=== PATIENT | female | born 1970 | race Caucasian/White ===

== ENCOUNTER 2018-08-30 18:28 | Emergency (ER) | payer MEDICAID ==
[2018-08-30] MEDS ORDERED: Take Home: Amoxicillin 500 MG Cap, 2 Cap Pack PO ONE (18:42)
--- NOTE | 2018-08-30 18:54 | EDM.PDOC ---
ED HPI GENERAL MEDICAL PROBLEM - General Chief Complaint: Bite:Animal, Insect Stated Complaint: DOG BIT HER Time Seen by Provider: 08/30/18 18:35 Source of Information: Reports: Patient History Limitations: Reports: No Limitations - History of Present Illness INITIAL COMMENTS - FREE TEXT/NARRATIVE: Patient comes into the emergency department with dog bite wounds. Patient states that she was trying to break up her animals at home when she went in between them her dog ended up biting her causing puncture wounds to both arms. Patient states it happened just prior to arrival. She did stop and take her animals to the vet on her way here. She states her left arm is more painful than her right. Onset: Sudden Location: Reports: Upper Extremity, Left, Upper Extremity, Right Quality: Reports: Throbbing Severity: Mild Improves with: Reports: Immobilization Worsens with: Reports: Movement Context: Reports: Other Associated Symptoms: Reports: No Other Symptoms Bilateral Lower Arm Pain Score (Numeric/FACES): 4 - Related Data Allergies Allergy/AdvReac Type Severity Reaction Status Date / Time No Known Allergies Allergy Verified 08/30/18 18:39 Home Meds: Home Meds Amoxicillin 500 mg PO BID 9 Days #18 tab 08/30/18 [Rx] Past Medical History - Past Health History Medical/Surgical History: Denies Medical/Surgical History Social & Family History - Tobacco Use Smoking Status *Q: Never Smoker ED ROS GENERAL - Review of Systems Review Of Systems: See Below Constitutional: Reports: No Symptoms HEENT: Reports: No Symptoms Respiratory: Reports: No Symptoms Cardiovascular: Reports: No Symptoms Endocrine: Reports: No Symptoms GI/Abdominal: Reports: No Symptoms : Reports: No Symptoms Musculoskeletal: Reports: No Symptoms Skin: Reports: No Symptoms Neurological: Reports: No Symptoms Psychiatric: Reports: No Symptoms Hematologic/Lymphatic: Reports: No Symptoms ED EXAM, ANIMAL BITE - Physical Exam Exam: See Below Exam Limited By: No Limitations General Appearance: Alert, WD/WN, No Apparent Distress Head: Atraumatic, Normocephalic Respiratory/Chest: No Respiratory Distress, No Accessory Muscle Use Cardiovascular: Normal Peripheral Pulses, Tachycardia Neurological: Alert, Oriented, CN II-XII Intact, Normal Gait, No Motor/Sensory Deficits Skin Exam: Other (superficial puncture wound right forearm. no bleeding noted. puncture wound to the left forearm. minimal bleeding note ) Course - Vital Signs Last Recorded V/S: Last Vital Signs Temp 37.0 C 08/30/18 18:32 Pulse 108 H 08/30/18 18:32 Resp 18 08/30/18 18:32 BP 145/91 H 08/30/18 18:32 Pulse Ox 97 08/30/18 18:32 - Orders/Labs/Meds Meds: Medications Discontinued Medications Generic Name Dose Route Start Last Admin Trade Name Uriel PRN Reason Stop Dose Admin Amoxicillin 1 packet 08/30/18 18:42 Take Home: Amoxicillin 500 Mg, 2 Cap Pack PO 08/30/18 18:43 ONETIME ONE Departure - Departure Time of Disposition: 19:00 Disposition: Home, Self-Care 01 Condition: Good Clinical Impression: Dog bite Qualifiers: Encounter type: initial encounter Qualified Code(s): W54.0XXA - Bitten by dog, initial encounter - Discharge Information *PRESCRIPTION DRUG MONITORING PROGRAM REVIEWED*: Not Applicable *COPY OF PRESCRIPTION DRUG MONITORING REPORT IN PATIENT ELLY: Not Applicable Prescriptions: Amoxicillin 500 mg PO BID 9 Days #18 tab Instructions: Animal Bite, Adult, [id number], Amoxicillin capsules or tablets , Probiotics Additional Instructions: 1. rest 2. activity and diet as tolerated 3. Keep wounds clean 4. Soak in soapy water 2 times a day 5. Keep the wounds wrapped when not cleaning for 3-4 days 6. take probiotic while taking antibiotics 7. Follow up as needed 8. Call with any questions or concerns - Assessment/Plan Assessment:: 1. dog bite Plan: 1. Clean wounds 2. Antibiotics provided 3. [place] regarding bite 4. Patient educated regarding taking probiotics while on antibiotics 5. Wound cleansing instructions provided 6. Follow up care instructed 7. All questions and concerns addressed prior to discharge
[2018-08-31] MEDS ORDERED: Take Home: Amoxicillin/Clavulanate K 875-125 MG Tab, 2 Tab Pack PO ONE (14:30)
== END 2018-08-30 19:22 | disposition home or self-care (01) ==
LOC: VM.ED 18:28
DX: S50.871A Other superficial bite of right forearm, initial encounter (principal); W54.0XXA Bitten by dog, initial encounter
CPT/HCPCS: 99283; A9270